=== PATIENT | male | born 1990 | race African-American/Black ===

== ENCOUNTER 2021-09-02 11:08 | Emergency (ER) | payer OTHER ==
[~2021-09-02] VITALS: Ht 182.9 cm; Wt 90.7 kg
--- NOTE | ~2021-09-02 | EMS ---
[address] [address] EMS Patient Care Report Name: JUANITA MENDEZ Room #: DEP JOSE Ramsay#: [id number] Admission: 09/02/21 Attend Phys: Discharge: 09/02/21 Date of : [birth year] Report #: [id number] THIS REPORT FOR: //name// Report Transmitted: 09/03/2021 09:58 EMS Care Summary [place], [place]/[facility] Incident [phone] @ 09/02/2021 10:43 Incident Location [address] [place], [place] [id number] Patient JUANITA MENDEZ Male, 31 Years 1990 Patient Address Patient History IV Drug Use/Abuse, Patient Allergies No known allergies, Patient Medications Trazodone, Chief Complaint PT NEED REFILL OF MEDICATIONS Disposition Transported No Lights/[place] Dispatch Reason Sick Person Transported To [facility] Narrative M41 WAS DISPATCHED FOR A SICK PERSON. UPON ARRIVAL THE PT WAS SITTING ON A BENCH INSIDE THE STORE. THE PT TOLD EMS THAT HE HAD BEEN OUT OF HIS MEDICATION FOR 2 MONTHS AND NEEDED TO GET IT REFILLED. THE PT HAD NO OTHER COMPLAINTS. THE PT WALKED TO THE AMBULANCE AND WAS TRANSPORTED TO THE HOSPITAL WHILE BEING MONITORED ENROUTE. THE PT WAS TRANSFERRED TO HOSPITAL STAFF WITH A REPORT. EMS RETURNED TO SERVICE. [address] [address] EMS Patient Care Report Name: JUANITA MENDEZ Room #: DEP ER Sobia#: [id number] Admission: 09/02/21 Attend Phys: Discharge: 09/02/21 Date of : [birth year] Report #: [id number] Initial Vitals @10:57P: 96,R: 16,BP: 134/68,Pain: 0/10,GCS: 15,SpO2: 95,Revised Trauma: 12, @10:53P: 90,R: 16,BP: 132/73,Pain: 0/10,GCS: 15,CO: 1,SpO2: 97,Revised Trauma: 12, Assessments @10:51MENTAL:Person Oriented,Place Oriented,Event Oriented,Time Oriented,SKIN:HEENT:Head/Face: No Abnormalities,Eyes: No Abnormalities,Neck/Airway: No Abnormalities,LUNG SOUNDS:General: No Abnormalities,Left Upper: No Abnormalities,Right Upper: No Abnormalities,Left Lower: No Abnormalities,Right Lower: No Abnormalities,ABDOMEN:General: No Abnormalities,Left Upper: No Abnormalities,Right Upper: No Abnormalities,Left Lower: No Abnormalities,Right Lower: No Abnormalities,PELVIS//GI:No Abnormalities,EXTREMITIES:Left Arm: No Abnormalities,Right Arm: No Abnormalities,Left Leg: No Abnormalities,Right Leg: No Abnormalities,PULSE:Radial: 2+ Normal,NEURO:No Abnormalities, Impression Behavioral/psychiatric episode Procedures @10:51 ALS Assessment Response: UnchangedSucceeded Timeline 10:41,Call Received 10:41,Dispatch Notified 10:43,Dispatched 10:45,En Route 10:50,On Scene 10:51,At Patient 10:51,ALS Assessment,Response: UnchangedSucceeded, 10:53,Depart Scene 10:53,BP: 132/73 M,PULSE: 90,RR: 16 R,SPO2: 97 Ox,ETCO2: ,BG: ,PAIN: 0,GCS: 15, 10:57,BP: 134/68 M,PULSE: 96,RR: 16 R,SPO2: 95 Ox,ETCO2: ,BG: ,PAIN: 0,GCS: 15, 11:04,At Destination 11:16,Call Closed Disclaimer v1.1 Copyright 2021 [employer] This EMS Care Summary contains data elements from the applicable legal record (which may be displayed differently). It is designed to provide pertinent information for the following purposes: continuity of care, clinical quality, and state data reporting. The complete legal record is available to ED staff and administrators of the receiving hospital in [facility]'s Patient Tracker. All data [address] [address] EMS Patient Care Report Name: JUANITA MENDEZ Room #: DEP JOSE Ramsay#: [id number] Admission: 09/02/21 Attend Phys: Discharge: 09/02/21 Date of : [birth year] Report #: [id number] is provided "as is."
[2021-09-02 13:10] VITALS: BP 121/63
== END 2021-09-02 13:11 | disposition home or self-care (01) ==
LOC: ER 11:08
DX: J00 Acute nasopharyngitis [common cold] (principal); Z76.0 Encounter for issue of repeat prescription